=== PATIENT | male | born 1935 | race Caucasian/White ===

== ENCOUNTER 2016-12-26 09:24 | Outpatient (CLI) | payer MEDICARE, BC, OTHER ==
[~2016-12-26] VITALS: Ht 188 cm; Wt 113.6 kg
[2016-12-26 09:34] VITALS: BP 98/59; PULSE 89; RESP 18; Ht 188 cm; Wt 113.6 kg
[2016-12-26] MEDS ORDERED: CRES10 PO (10:12)
[2016-12-26] MEDS ORDERED: GLIM4TAB PO (10:12)
[2016-12-26] MEDS ORDERED: EMPA10TA PO (10:12)
[2016-12-26] MEDS ORDERED: FURO80TA3 PO (10:12)
[2016-12-26] MEDS ORDERED: CHOL100062 PO (10:12)
[2016-12-26] MEDS ORDERED: MULT-896 PO (10:12)
[2016-12-26] MEDS ORDERED: AMLO1TAB68 PO (10:12)
[2016-12-26] MEDS ORDERED: DIGO125T6 PO (10:12)
[2016-12-26] MEDS ORDERED: MTF1000T PO (10:12)
[2016-12-26] MEDS ORDERED: AMLO-496 PO (10:12)
[2016-12-26] MEDS ORDERED: LIRA0.6P2 SQ (10:12)
--- NOTE | 2016-12-26 11:58 | CONS ---
DATE OF ADMISSION: 12/26/2016 DATE OF CONSULTATION: 12/26/2016 [facility] INITIAL OUTPATIENT CONSULTATION NOTE PLACE OF SERVICE: [facility]. CONSULTATION REQUESTED BY: Romeo Nuñez MD Dear Dr. Nuñez: Thank you again very much for the opportunity to participate in the care of this very pleasant gentleman and his wonderful family. HISTORY OF PRESENT ILLNESS: The patient is a very pleasant 81-year-old gentleman with a number of comorbidities as listed below, whom we were kindly asked to consult regarding management of his newly discovered pancreatic uncinate process cyst. This came about due to patient losing weight for a few months prior to being evaluated. As part of his workup, a CT scan of abdomen and pelvis was ordered which was done on 12/06/2016. The CT scan demonstrated a 1.8 x 1.2 cm cystic mass in the uncinate process of the pancreas. Question was raised as to whether this is a pseudocyst versus a cystic tumor and a followup CT scan was recommended in 4 months to ensure stability. On this CT, there was also vascular calcifications with partially calcified thrombus within the left atrial appendage. No other major abnormality was noted on the report. My own review of the CT demonstrated significant atherosclerotic vascular disease and coronary artery disease. There were calcifications of the coronary vessels as well as the prior known stent that is in the heart. There is also aortic atherosclerotic changes involving the takeoff of the superior mesenteric artery and the celiac artery and the splenic artery demonstrates the same calcifications. Small umbilical hernia is also present. The patient was kindly referred to us and I had a chance to meet him today (no family present with the patient). The patient himself reports having no major symptoms currently. He has gained the weight that he had lost in the past. There is no clear explanation as to why he was losing the weight. His appetite has been unchanged. He does not have any issues with changes in bowel or bladder habits. No issues with diarrhea or constipation and no blood in the stool or urine. He also does not report any episodes of prior pancreatitis. He has had his gallbladder taken out years ago and does not have any other major complaints. COMORBIDITIES: 1. Hypertension. 2. Diabetes mellitus type 2 with polyneuropathy. 3. BMI 32.2. 4. Hammertoe. 5. Unspecified hearing loss. 6. Low back pain. 7. Osteoarthritis. 8. Tinea unguium. 9. History of heart failure in 2014. 10. Atrial fibrillation. 11. History of atrial flutter. 12. On aspirin and not on anticoagulation at this time. 13. Mixed hyperlipidemia. 14. Onychomycosis. 15. History of subdural hematoma. 16. Tonsillectomy as a child. 17. Gallbladder removal in 1969. 18. Watchman implantation in 2016. ALLERGIES: NO KNOWN DRUG ALLERGIES. MEDICATIONS: Carefully recorded and reviewed in the electronic record system. SOCIAL HISTORY: The patient is retired from a desk job. He has 3 children. There used to be stress in his job, but currently none. He occasionally drinks alcohol and does not smoke or use intravenous drugs. FAMILY HISTORY: There is history of diabetes mellitus and heart disease in the family. No other mention of major medical, surgical or oncologic problems in the family. REVIEW OF SYSTEMS: Patient reported having frequency of urination and taking aspirin 81 mg per day. There are also occasional times that the patient has to get up at night and urinate. No other major pertinent positives or pertinent negatives in a complete 14-point review of systems. PHYSICAL EXAMINATION: GENERAL: The patient appears to be a very pleasant gentleman of non- descent, appearing stated age, sitting in chair comfortably and in no acute distress. His BMI is 32.2. He is afebrile. Blood pressure is 98/59. Otherwise, the rest of the vital signs are stable. HEENT: His head is normocephalic and atraumatic. His extraocular muscles and hearing are grossly intact bilaterally and symmetrically. His sclerae are nonicteric. His oral mucosa appeared to be pink and moist. His dentition is fair to poor with some missing teeth. NECK: Supple. There is no lymphadenopathy or JVD. There is no submental, submandibular or supraclavicular lymphadenopathy. CHEST: Rises symmetrically with each breath, and he is breathing comfortably. There are no audible wheezes, rales or rhonchi on the gross exam. His pulses are palpable in the carotids bilaterally and symmetrically, as well as on his right wrist. EXTREMITIES: Lower extremities contain no pitting edema around the ankles bilaterally and symmetrically. ABDOMEN: Soft, nontender and nondistended. There is no evidence of organomegaly, caput medusae, engorged subcutaneous veins or ascites. There are no peritoneal signs or guarding. SKIN: Appears to be pink and feels warm to touch. NEUROLOGIC: He is awake, alert and follows commands appropriately. LABORATORY DATA: Dated 11/23/2016, significant for creatinine 1.3, albumin 3.9 , normal liver function and injury parameters with slight elevation in alkaline phosphatase of 144. Hemoglobin A1c 6.8, platelets 354. The 11/24/2016 stool, ova and parasite evaluation negative. IMAGING: Patient had a CT scan of the abdomen and pelvis on 12/06/2016, the findings of which were reviewed above. ASSESSMENT AND PLAN: A very pleasant 81-year-old gentleman with multiple comorbid issues presenting with a small 1.8 cm cyst in the uncinate process of the pancreas that appears not to have any of the worrisome features (that is size greater than 3 cm, pancreatic duct dilatation, thickened septa or calcifications, etcetera.). At this time, I do not see any indication for any further investigation other than the suggested CT scan in about 4 months, which would give us a good short term followup. Most of these cysts can be followed symptomatically once the short-term followup has been done. I doubt that there is any role for endoscopic ultrasound evaluation of the cyst, but I will review this with our trailer park manager and also obtain the patient's permission to perhaps present his case in a multidisciplinary tumor board if the above CT scan demonstrated any changes. Obviously if the patient starts having any symptoms including abdominal pain, diarrhea, greasy stools in the toilet or other symptoms, the patient should be evaluated again. I explained all of this to the patient and answered all questions. Patient appeared to understand and agreed with plans. With above assessment, I recommend the followin. CT scan of abdomen and pelvis, pancreas protocol with IV and oral contrast in April 2017. 2. Possible presentation of the patient's case after above in Multidisciplinary Tumor Board presentation. 3. I could potentially follow up with the patient over the phone if there are no other concerning features on the CT scan. We will be happy to see the patient at any time for followup as well. 4. Follow up with Dr. Nuñez. Thank you again for allowing us to participate in the care of this very pleasant gentleman and I am certain his wonderful family. If there are any questions, please feel free to me at [phone]. DEGREE OF COMPLEX DECISION MAKING: Moderate complexity. RISK OF PRESENTING PROBLEM: High risk. Dictated By: UMANG LOUISE/GARCIA Conf#: [id number] DID#: [id number] CC: ROMEO NUÑEZ MD; Dr. Mckeon s/l Enrique; dept o;*EndCC* MTDD
== END 2016-12-26 16:29 | disposition home or self-care (01) ==
LOC: HPC 09:24
PROVIDERS: ATTEND Transplant Surgery
DX: K86.2 Cyst of pancreas (principal); I10 Essential (primary) hypertension; E11.42 Type 2 diabetes mellitus with diabetic polyneuropathy; I50.9 Heart failure, unspecified; I48.91 Unspecified atrial fibrillation; E78.2 Mixed hyperlipidemia; Z79.82 Long term (current) use of aspirin
CPT/HCPCS: G0463